=== PATIENT | female | born 1940 | race African-American/Black ===

== ENCOUNTER 2024-11-16 13:01 | Inpatient (IN) | payer MEDICARE, MEDICAID ==
[~2024-11-16] VITALS: Ht 165.1 cm; Wt 93.9 kg
[~2024-11-16 13:01] MED LIST: CLOP-31 MT; LIP40 PO
[2024-11-16] MEDS: DEXAMETHASONE 10 MG/ML VIAL IV ONE (13:39)
[2024-11-16 14:00] LABS: BASOPHILS % 0.6 % (0.0-2.0); EOSINOPHILS % 2.6 % (0.0-5.0); HEMATOCRIT. 33.7 % (36.0-48.0); HEMOGLOBIN. 11.0 g/dL (12.0-16.0); LYMPHOCYTES % 15.8 % (20.0-50.0); MEAN PLATELET VOLUME 7.8 fl (7.4-10.4); MONOCYTES % 5.3 % (2.0-8.0); NEUTROPHILS % 75.7 % (40.0-76.0); PLATELET 238 x1000/uL (130-400); RED BLOOD CELL COUNT 4.06 mill/uL (4.2-5.4); RED CELL DISTRIBUTION WIDTH 17.8 % (11.6-14.6)
[2024-11-16 14:06] LABS: INR 1.0
[2024-11-16] MEDS: IPRATROPIUM BROMIDE (0.02%) 0.5MG/2.5ML NEB HHN SCH (14:08)
[2024-11-16 14:09] VITALS: PULSE 53; RESP 18; O2SAT 100
[2024-11-16] MEDS: ALBUTEROL (0.083%) 2.5MG/3ML NEB HHN SCH (14:09)
[2024-11-16 14:11] LABS: CREATININE 0.7 mg/dL (0.6-1.0); TROPONIN I HIGH SENSITIVITY 4 ng/L (3.0-34); UREA NITROGEN BLOOD 11 mg/dL (9-23)
[2024-11-16 14:13] LABS: ASPARTATE AMINOTRANSFERASE 16 IU/L (<34); BILIRUBIN DIRECT 0.1 mg/dL (<=3.0); BILIRUBIN TOTAL 0.4 mg/dL (0.1-1.0); PROTEIN TOTAL 7.4 g/dL (6.0-8.3)
[2024-11-16 14:38] LABS: BG BASE EXCESS 3.7 mmol/L (-2.0-3.0); BG CARBOXYHEMOGLOBIN 1.4 % (0.5-1.5); BG DEOXYHEMOGLOBIN 0.6 % (0.0-5.0); BG FLOW(L/min) 6.00 L/min; BG FRACTION INSPIRED OXYGEN 40; BG HCO3 ACT 29.5 mmol/L (21.0-28.0); BG METHEMOGLOBIN 0.3 % (0.5-1.5); BG OXYGEN SATURATION 99.4 % (94.0-98.0); BG OXYHEMOGLOBIN 97.7 % (94.0-98.0); BG PCO2 50.2 mmHg (32.0-45.0); BG PH 7.387 (7.350-7.450); BG PO2 161.2 mmHg (83.0-108.0); BG SAMPLE SITE RIGHT RADIAL; BG TOTAL HEMOGLOBIN 11.3 g/dL (12.0-16.0); BG VENT MODE MASK HHN
[2024-11-16 15:48] LABS: TROPONIN I HIGH SENSITIVITY < 4 ng/L (3.0-34)
[2024-11-16] MEDS ORDERED: ONDANSETRON HCL 4MG/2ML INJ IV PRN (18:00)
[2024-11-16] MEDS ORDERED: DEXTROSE 50% WATER 50ML SYRINGE IV PRN (18:00)
[2024-11-16] MEDS ORDERED: ACETAMINOPHEN 325MG TABLET PO PRN ×2 (18:00)
[2024-11-16] MEDS ORDERED: IPRATROPIUM/ALBUTEROL 0.5-3(2.5)MG/3ML NEB HHN PRN (18:00)
[2024-11-16] MEDS ORDERED: CLONIDINE 0.1MG TABLET PO PRN (18:00)
[2024-11-16] MEDS ORDERED: DOCUSATE SODIUM 100MG CAPSULE PO PRN (18:00)
[2024-11-16] MEDS: CARVEDILOL 12.5MG TABLET PO NR (18:45)
[2024-11-16] MEDS ORDERED: LORAZEPAM 2MG/ML UD SYRINGE IV PRN (19:45)
[2024-11-16 22:00] VITALS: BP_SYST 170; BP_DIAS 74; BP_DIAS 78; PULSE 84; RESP 18; RESP 19; TEMP 36.1956; TEMP 36.2; O2SAT 98
[2024-11-16] MEDS: PIPERACILLIN/TAZO 3.375G/50ML 50 ML IV SCH (22:36)
[2024-11-16] MEDS: LOSARTAN 25 MG TABLET PO SCH (22:37)
[2024-11-16] MEDS: GABAPENTIN 100MG CAPSULE PO SCH (22:37)
[2024-11-16] MEDS: DULOXETINE HCL 30MG DR CAPSULE PO SCH (22:38)
[2024-11-16] MEDS: ATORVASTATIN CALCIUM 40MG TABLET PO SCH (22:38)
[2024-11-16] MEDS: LEVETIRACETAM 500MG TABLET PO SCH (22:38)
[2024-11-17] VITALS: BP 171/78; PULSE 85; RESP 18; TEMP 36.6; O2SAT 98
[2024-11-17] MEDS: BUDESONIDE 0.5MG/2ML NEB HHN SCH (01:08)
[2024-11-17 04:00] VITALS: BP 150/69; PULSE 72; RESP 18; TEMP 36.1; O2SAT 97
[2024-11-17 07:29] LABS: BASOPHILS % 0.1 % (0.0-2.0); EOSINOPHILS % 0.1 % (0.0-5.0); HEMATOCRIT. 36.6 % (36.0-48.0); HEMOGLOBIN. 11.8 g/dL (12.0-16.0); LYMPHOCYTES % 11.1 % (20.0-50.0); MEAN PLATELET VOLUME 8.1 fl (7.4-10.4); MONOCYTES % 1.5 % (2.0-8.0); NEUTROPHILS % 87.2 % (40.0-76.0); PLATELET 258 x1000/uL (130-400); RED BLOOD CELL COUNT 4.39 mill/uL (4.2-5.4); RED CELL DISTRIBUTION WIDTH 17.6 % (11.6-14.6)
[2024-11-17 07:36] LABS: CREATININE 0.8 mg/dL (0.6-1.0); TRIGLYCERIDE 62 mg/dL (0-150); UREA NITROGEN BLOOD 12 mg/dL (9-23)
[2024-11-17 07:37] LABS: LDL CHOLESTEROL 99 mg/dL (5-100)
[2024-11-17 07:40] LABS: T4 FREE 1.22 ng/dL (0.89-1.76)
[2024-11-17 07:44] LABS: FOLIC ACID (FOLATE) SERUM 12.12 ng/mL (>5.38); VITAMIN B12 SERUM 461 pg/mL (211-911)
[2024-11-17 08:00] VITALS: BP 136/64; PULSE 99; RESP 18; TEMP 36.6; O2SAT 97
[2024-11-17] MEDS: PANTOPRAZOLE SODIUM 40 MG/VIAL IV SCH (08:42)
[2024-11-17] MEDS: ENOXAPARIN 40MG/0.4ML SYR SUBCUT SCH (08:43)
[2024-11-17] MEDS: CLOPIDOGREL 75MG TABLET PO SCH (08:43)
[2024-11-17] MEDS: AMLODIPINE 10MG TABLET PO SCH (08:44)
[2024-11-17 12:00] VITALS: BP 152/62; PULSE 65; RESP 18; TEMP 36.2; O2SAT 96
[2024-11-17 16:00] VITALS: BP 155/59; PULSE 67; RESP 18; TEMP 36.4; O2SAT 97
[2024-11-17] MEDS ORDERED: FERR325T6 MT (16:21)
[2024-11-17] MEDS ORDERED: GABA-529 MT (16:21)
[2024-11-17] MEDS ORDERED: HYDR-4001 MT (16:21)
[2024-11-17] MEDS ORDERED: LEVE-20 MT (16:21)
[2024-11-17] MEDS ORDERED: AMLO-905 MT (16:21)
[2024-11-17] MEDS ORDERED: DULO30CA52 MT (16:21)
[2024-11-17] MEDS ORDERED: IPRA3AMP31 IH (16:21)
[2024-11-17] MEDS ORDERED: CARV12.545 MT (16:21)
[2024-11-17] MEDS ORDERED: BACL-141 PO (16:21)
[2024-11-17 20:00] VITALS: BP 131/91; PULSE 60; RESP 18; TEMP 36.2; O2SAT 98
[2024-11-17 22:05] LABS: CLARITY URINE CLEAR (CLEAR); COLOR URINE YELLOW (YELLOW); GLUCOSE URINE NEGATIVE (NEGATIVE); KETONES URINE TRACE (NEGATIVE); LEUKOCYTE ESTERASE URINE NEGATIVE (NEGATIVE); NITRITE URINE NEGATIVE (NEGATIVE); OCCULT BLOOD URINE NEGATIVE (NEGATIVE); PH URINE 5.5 (4.5-8.0); PROTEIN URINE 2+ (NEGATIVE); SPECIFIC GRAVITY URINE 1.024 (1.005-1.030); UROBILINOGEN URINE 0.2 E.U./dL (0.2-1.0)
[2024-11-17 22:12] LABS: *AMPHETAMINES SCREEN URINE NEGATIVE (NEGATIVE); *BARBITURATES SCREEN URINE NEGATIVE (NEGATIVE); *BENZODIAZEPINES SCREEN URINE NEGATIVE (NEGATIVE)
[2024-11-17 22:13] LABS: *COCAINE SCREEN URINE NEGATIVE (NEGATIVE); CANNABINOID URINE SCREEN NEGATIVE (NEGATIVE); ECSTASY MDMA SCREEN URINE NEGATIVE (NEGATIVE); METHADONE URINE SCREEN NEGATIVE (NEGATIVE); OPIATES URINE SCREEN NEGATIVE (NEGATIVE); PHENCYCLIDINE URINE SCREEN NEGATIVE (NEGATIVE)
[2024-11-17 22:49] LABS: BACTERIA URINE 1+; SQUAMOUS EPITHELIAL CELL URINE 1+ /lpf (RARE/1+)
[2024-11-17 22:50] LABS: RBC URINE 0-2 /hpf (0-2); WBC URINE 0-2 /hpf (0-2)
[2024-11-18] VITALS (7 sets, daily range): BP systolic 148–172; BP diastolic 42–60; PULSE 47–74; RESP 17–20; TEMP 35.8–36.8; O2SAT 96–100
== END 2024-11-18 13:45 | DRG 189 ==
LOC: ER 13:01 → 8WST 15:26 → EDBEDREQ 15:29 → EDBEDREQTM 15:29 → EDBEDREQSVC 15:29 → ENRESERV 18:37 → CANRESERV 18:37 → ENRESERV 20:59
PROVIDERS: ADMIT Hospitalist; ATTEND Hospitalist
DX: J96.01 Acute respiratory failure with hypoxia (principal); J69.0 Pneumonitis due to inhalation of food and vomit; J44.1 Chronic obstructive pulmonary disease with (acute) exacerbation; G93.49 Other encephalopathy; I69.354 Hemiplegia and hemiparesis following cerebral infarction affecting left non-dominant side; D64.9 Anemia, unspecified; G40.909 Epilepsy, unspecified, not intractable, without status epilepticus; E78.00 Pure hypercholesterolemia, unspecified; F01.50 Vascular dementia, unspecified severity, without behavioral disturbance, psychotic disturbance, mood disturbance, and anxiety; I10 Essential (primary) hypertension; R00.1 Bradycardia, unspecified; T50.995A Adverse effect of other drugs, medicaments and biological substances, initial encounter; Z74.01 Bed confinement status; Z79.02 Long term (current) use of antithrombotics/antiplatelets; Z79.899 Other long term (current) drug therapy; Z87.01 Personal history of pneumonia (recurrent); Z90.5 Acquired absence of kidney; Y92.89 Other specified places as the place of occurrence of the external cause
CPT/HCPCS: 36415; 36600; 71045; 80048; 80061; 80076; 80305; 81003; 82375; 82607; 82728; 82746; 82805; 83036; 83540; 83550; 83735; 83880; 84145; 84439; 84443; 84484; 85025; 93005; 93970; 94070; 94640; 94664; 97162; 97166; 97535; 99285; J1100; J1650; J2470; J2543; J7626